=== PATIENT | female | born 1990 | race Caucasian/White ===

== ENCOUNTER → 2020-11-14 | Outpatient (CLI) | payer OTHER ==
[~2020-11-14] MED LIST: MOTRIN 800800 MG/TAB PO; PRENATAL; ZOLOFT 100MG100 MG PO
== END ==
LOC: DIA.ED
DX: O24.419 Gestational diabetes mellitus in pregnancy, unspecified control (principal)
CPT/HCPCS: G0108

== ENCOUNTER → 2020-11-20 | Outpatient (CLI) | payer OTHER | LOC: DIA.ED 14:21 | DX: O24.419 Gestational diabetes mellitus in pregnancy, unspecified control (principal) | CPT/HCPCS: G0108 ==

== ENCOUNTER 2021-02-03 06:17 | Inpatient (IN) | payer OTHER ==
[2021-02-03] VITALS (46 sets, daily range): BP systolic 117–156; BP diastolic 64–402; PULSE 73–130; TEMP 98–98.7
[~2021-02-03] VITALS: Ht 175.3 cm; Wt 114.1 kg
--- NOTE | 2021-02-03 06:25 | NUR ---
PATIENT HERE TO [facility] FOR INDUCTION. PATIENT ASKED TO CHANGE INTO GOWN. PATIENT SAT TO THE CAR TO GET HER GOWN. PATIENT SAT ON BED AND WAITED FOR HUSBANDS ARRIVAL. PATIENT ON EFM AT 0635. IV STARTED, ASSESMENT COMPLETE, CONSENTS SIGNED.QUESTIONS ANSWERED. PATIENT DENIES CONTRACTIONS, LEAKING OF FLUID OR BLEEDING.
[2021-02-03] MEDS ORDERED: PRENATAL (07:09)
[2021-02-03] MEDS ORDERED: ZOLOFT 100MG100 MG PO (07:09)
[2021-02-03 07:56] LABS: BASO % 0.2 % (0.0-2.0); EOS # 0.1 (0.0-0.7); EOS % 1.1 % (0-4.0); GRAN # 7.4 (1.4-6.5); GRAN % 74.7 % (42.2-75.2); HEMATOCRIT 36.7 % (37.0-47.0); HEMOGLOBIN 11.6 g/dl (12.5-16.0); LYMPH # 1.6 (1.2-3.4); LYMPH % 15.9 % (20.0-51.0); MEAN CELL VOLUME 81 fl (80.0-100.0); MEAN CORPUSCULAR HEMOGLOBIN 26 pg (27.0-31.0); MEAN CORPUSCULAR HGB CONC 32 g/dl (33.0-37.0); MEAN PLATELET VOLUME 12.4 fl (7.4-10.4); MONO # 0.8 (0.1-0.6); MONO % 7.6 % (1.7-9.3); PLATELET COUNT 178 K/mm3 (130-400); RED BLOOD COUNT 4.52 M/mm3 (4.10-5.30); REDCELL DISTRIBUTION WIDTH-CV 13.7 % (11.5-14.5)
--- NOTE | 2021-02-03 16:34 | NUR ---
[id number] INTERMITTENTLY TRACING BABY. 1634- VAC ASSISTED DELIVERY WITH 1 POP OFF AT THIS TIME. TO MOTHERS CHEST FOB CUT CORD, IN CARE OF DOYLE RN. PLACENTA DELIVERED AT 1637. PITOCIN AT 333 MLS/ HR. FUNDAL MASSAGE PROVIDED 2ND DEGREE REPAIRED BY DR HARRIS. ICE PACK TO PERINEUM. WARM BLANKET ON PATIENT.
[2021-02-04 03:12] VITALS: BP 128/55; PULSE 79; TEMP 97.9
[2021-02-04 07:18] VITALS: BP 124/73; PULSE 72; TEMP 97.9
[2021-02-04 11:30] VITALS: BP 121/80; PULSE 80; TEMP 98.1
[2021-02-04 17:04] VITALS: BP 129/76; PULSE 86; TEMP 98.4
[2021-02-04 20:00] VITALS: BP 140/87; PULSE 88; TEMP 98.3
[2021-02-05 07:18] VITALS: BP 132/82; PULSE 84; TEMP 97.4
[2021-02-05] MEDS ORDERED: MOTRIN 800800 MG/TAB PO (08:04)
--- NOTE | 2021-02-05 11:49 | NUR ---
9402 ALL DISCHARGE INSTRUCTIONS GIVNEN TO PATIENT AND WITH VERBAL UNDERSTANDNING
== END 2021-02-05 11:48 | disposition home or self-care (01) | DRG 807 ==
LOC: LDR 06:17 → OB 06:17
PROVIDERS: ADMIT Obstetrics & Gynecology
PROC: 10D07Z6 Extraction of Products of Conception, Vacuum, Via Natural or Artificial Opening (ICD-10-PCS; principal; 2021-02-03)
PROC: 0KQM0ZZ Repair Perineum Muscle, Open Approach (ICD-10-PCS; 2021-02-03)
PROC: 10907ZC Drainage of Amniotic Fluid, Therapeutic from Products of Conception, Via Natural or Artificial Opening (ICD-10-PCS; 2021-02-03)
DX: O99.892 Other specified diseases and conditions complicating childbirth (principal); Z37.0 Single live birth; R00.1 Bradycardia, unspecified; Z3A.41 41 weeks gestation of pregnancy; O99.344 Other mental disorders complicating childbirth; F41.9 Anxiety disorder, unspecified; O99.214 Obesity complicating childbirth; E66.9 Obesity, unspecified; O99.52 Diseases of the respiratory system complicating childbirth; O48.0 Post-term pregnancy; O24.420 Gestational diabetes mellitus in childbirth, diet controlled; O77.0 Labor and delivery complicated by meconium in amniotic fluid
CPT/HCPCS: J2590; J7120